=== PATIENT | female | born 1950 | race Caucasian/White ===

== ENCOUNTER 2016-11-04 23:41 | Emergency (ER) | payer OTHER ==
[~2016-11-04] VITALS: Ht 157.5 cm; Wt 128.1 kg
[~2016-11-04 23:41] MED LIST: AUGMENTIN875 MG PO
[2016-11-05 00:23] LABS: HEMATOCRIT 41.6 % (36.0-46.0); MCH 29.6 PG (29.0-34.0); MCV 92.4 FL (83-99); MEAN PLAT.VOLUME 9.6 uM^3 (9.5-12.4); PLATELET COUNT 246 K/uL (156-360); RBC DIS.WIDTH-CV 13.4 % (11.8-14.6); RBC DIS.WIDTH-SD 45.7 % (39-53)
[2016-11-05 00:35] LABS: CHLORIDE 105 mEq/L (99-109); SODIUM 138 mEq/L (136-147)
[2016-11-05 00:36] LABS: GLUCOSE 89 mg/dL (70-99)
[2016-11-05 00:38] LABS: ANION GAP 9 MEQ/L (2-14)
[2016-11-05 00:40] LABS: GFR ESTIMATE (CALCULATED) > 59 mL/min/
[2016-11-05 00:41] LABS: UREA NITROGEN (BUN) 22 mg/dL (9-23)
[2016-11-05 01:57] LABS: INFLUENZA A VIRAL ANTIGEN NEGATIVE; INFLUENZA B VIRAL ANTIGEN NEGATIVE
[2016-11-05] MEDS ORDERED: ZITHROMAX Z-PA250 MG PO (03:09)
[2016-11-05 03:32] VITALS: BP 104/51
== END 2016-11-05 03:32 | disposition home or self-care (01) ==
LOC: EXP 23:41 → EME 23:41 → EXP 11-05 03:32
PROVIDERS: Emergency Medicine
DX: J20.9 Acute bronchitis, unspecified (principal); Z87.891 Personal history of nicotine dependence
CPT/HCPCS: 71020; 80048; 85027; 87502; 99281; 99284

== ENCOUNTER 2018-02-20 19:18 | Inpatient (IN) | payer OTHER ==
[~2018-02-20] VITALS: Ht 154.9 cm; Wt 133.5 kg
[~2018-02-20 19:18] MED LIST changes: +ZITHROMAX Z-PA250 MG PO
[2018-02-20 20:01] LABS: HEMATOCRIT 42.5 % (36.0-46.0); HEMOGLOBIN 13.2 G/DL (11.9-15.5); MCH 29.9 PG (29.0-34.0); MCHC 31.1 G/DL (30.0-36.0); PLATELET COUNT 352 K/uL (156-360); RBC DIS.WIDTH-CV 14.5 % (11.8-14.6); RBC DIS.WIDTH-SD 51.6 % (39-53); RED BLOOD COUNT 4.41 M/uL (3.80-5.20); WHITE BLOOD COUNT 18.5 K/uL (4.1-10.2)
[2018-02-20 20:08] LABS: MCV 96.4 FL (83-99)
[2018-02-20 20:12] LABS: ALBUMIN 4.3 g/dL (3.2-4.8); CHLORIDE 102 mEq/L (99-109); SODIUM 141 mEq/L (136-147)
[2018-02-20 20:15] LABS: GLUCOSE 132 mg/dL (70-99)
[2018-02-20 20:17] LABS: TOTAL BILIRUBIN 0.3 mg/dL (0.0-1.0)
[2018-02-20 20:18] LABS: ALKALINE PHOSPHATASE 63 IU/L (3-129); CREATININE 10.9 mg/dL (0.6-1.3); GFR ESTIMATE (CALCULATED) 4 mL/min/
[2018-02-20 20:19] LABS: UREA NITROGEN (BUN) 79 mg/dL (9-23)
[2018-02-20 20:20] LABS: AST (GOT) 23 IU/L (2-34)
[2018-02-20 20:21] LABS: ALT (GPT) 22 IU/L (3-49)
[2018-02-20 20:50] LABS: POTASSIUM 6.3 mEq/L (3.7-5.4)
[2018-02-20 21:16] LABS: LIPASE 25 U/L (1.0-51.0)
[2018-02-20 21:26] LABS: COMMENTS - BLOOD GASES C+; FI02 21 %; MODE RA; SITE LR
[2018-02-20 21:27] LABS: CARBOXY HGB 1.3 % (0-5); METHEMOGLOBIN 0.7 % (0-1.5); O2 SATURATION (CALCULATED) 96 % (95-99); PCO2 20 mm Hg (35-45); PO2 103 mm Hg (80-100); pH < 6.91 (7.35-7.45)
[2018-02-20] MEDS ORDERED: KEFLEX500 MG PO (21:30)
[2018-02-20 22:26] LABS: SERUM ETHYL ALCOHOL < 10 mg/dL
[2018-02-20 22:29] LABS: SALICYLATE < 5.0 MG/DL (15-30)
[2018-02-20 22:56] LABS: APPEARANCE SL.HAZY ((CLEAR)); BILIRUBIN NEGATIVE; BLOOD MODERATE; COLOR YELLOW ((YELLOW)); GLUCOSE (STRIP) 50; KETONES 5; LEUKOCYTES NEGATIVE; NITRITE NEGATIVE; PROTEIN (STRIP) 100; SPECIFIC GRAVITY 1.011 (1.000-1.030); UROBILINOGEN 0.2 MG/DL (0.2-1.0)
[2018-02-20 23:05] LABS: BACTERIA RARE /HPF; EPITHELIAL CELLS RARE /HPF; HYALINE CASTS 0-5 /LPF; MUCUS TRACE /LPF; UCUL ADDED? YES; WHITE BLOOD CELLS 15-20 /HPF (0-5)
[2018-02-20 23:08] LABS: DEVICE VENT; FI02 50 %; MECHANICAL RATE 24 resp/min; MODE AC
[2018-02-20 23:09] LABS: PEEP 5 CM/H20; TIDAL VOLUME 380 ML
[2018-02-20 23:20] LABS: CARBOXY HGB 1.1 % (0-5); METHEMOGLOBIN 0.6 % (0-1.5); PCO2 34 mm Hg (35-45); PO2 117 mm Hg (80-100); pH < 6.94 (7.35-7.45)
[2018-02-20 23:21] LABS: SITE LR
[2018-02-20 23:50] VITALS: BP 106/55; BP 109/67
[2018-02-21] VITALS (12 sets, daily range): BP systolic 74–143; BP diastolic 38–72
[2018-02-21 00:38] LABS: INTER. NORMALIZED RATIO 1.3
[2018-02-21 00:59] LABS: CREATINE KINASE 142 IU/L (1-294); TRIGLYCERIDES 122 MG/DL (Normal: <150)
[2018-02-21 03:40] LABS: DEVICE VENT; FI02 50 %; MECHANICAL RATE 24 resp/min; MODE ACVC; PEEP 5 CM/H20; SITE RR ALINE; TIDAL VOLUME 380 ML; TOTAL RESP RATE 24 resp/min
[2018-02-21 03:41] LABS: BASE EXCESS -20.1 mEq/L (-3 to +3); BICARBONATE 11.1 mEq/L (22-26); CARBOXY HGB 1.4 % (0-5); METHEMOGLOBIN 0.7 % (0-1.5); O2 SATURATION (CALCULATED) 97.4 % (95-99); PCO2 46 mm Hg (35-45); PO2 103 mm Hg (80-100)
[2018-02-21 03:42] LABS: pH 6.99 (7.35-7.45)
[2018-02-21 06:12] LABS: COMMENTS - BLOOD GASES C+; DEVICE 840 VENT; FI02 50 %; MECHANICAL RATE 24 resp/min; MODE AC; PCO2 29 mm Hg (35-45); PEEP 5 CM/H20; SITE ALINE; TIDAL VOLUME 380 ML; TOTAL RESP RATE 31 resp/min; pH 7.31 (7.35-7.45)
[2018-02-21 06:13] LABS: BASE EXCESS -10.5 mEq/L (-3 to +3); BICARBONATE 14.6 mEq/L (22-26); CARBOXY HGB 0.8 % (0-5); PO2 152 mm Hg (80-100)
[2018-02-21 06:20] LABS: BASOPHIL (%) 0.4 % (0-1); BASOPHIL COUNT 0.1 K/uL (0-0.1); EOSINOPHIL (%) 0 % (0-5); HEMOGLOBIN 11.5 G/DL (11.9-15.5); IMMATURE GRANULOCYTE (%) 3.7 % (0.0-0.7); LYMPHOCYTE (%) 5.7 % (15-42); LYMPHOCYTE COUNT 1.1 K/uL (1.0-2.8); MCH 29.8 PG (29.0-34.0); MCHC 31.9 G/DL (30.0-36.0); MCV 93.3 FL (83-99); MONOCYTE (%) 7.6 % (3-12); MONOCYTE COUNT 1.5 K/uL (0-0.8); NEUTROPHIL (%) 82.6 % (45-76); NEUTROPHIL COUNT 16.5 K/uL (1.8-6.4); PLATELET COUNT 312 K/uL (156-360); RBC DIS.WIDTH-CV 14.4 % (11.8-14.6); RBC DIS.WIDTH-SD 49.1 % (39-53); RED BLOOD COUNT 3.86 M/uL (3.80-5.20); WHITE BLOOD COUNT 19.9 K/uL (4.1-10.2)
[2018-02-21 06:34] LABS: CHLORIDE 91 MEQ/L (99-109); CREATINE KINASE 138 IU/L (1-294); GLUCOSE 153 mg/dL (70-99); MAGNESIUM 2.1 mg/dl (1.3-2.7); PHOSPHORUS 4.7 mg/dL (2.5-4.9); SODIUM 143 MEQ/L (136-147)
[2018-02-21 06:44] LABS: CREATININE 5.5 MG/DL (0.6-1.3); GFR ESTIMATE (CALCULATED) 8 mL/min/; POTASSIUM 4.6 MEQ/L (3.7-5.4); UREA NITROGEN (BUN) 37 mg/dL (9-23)
[2018-02-21 15:27] LABS: CHLORIDE 91 MEQ/L (99-109); GLUCOSE 122 mg/dL (70-99); POTASSIUM 5.5 MEQ/L (3.7-5.4); SODIUM 140 MEQ/L (136-147); UREA NITROGEN (BUN) 47 mg/dL (9-23)
[2018-02-21 15:28] LABS: CREATININE 6.6 MG/DL (0.6-1.3); GFR ESTIMATE (CALCULATED) 7 mL/min/
[2018-02-22 06:10] LABS: BASOPHIL (%) 0.1 % (0-1); EOSINOPHIL (%) 0 % (0-5); HEMATOCRIT 30.1 % (36.0-46.0); HEMOGLOBIN 9.8 G/DL (11.9-15.5); IMMATURE GRANULOCYTE (%) 0.5 % (0.0-0.7); LYMPHOCYTE (%) 18.4 % (15-42); LYMPHOCYTE COUNT 1.4 K/uL (1.0-2.8); MCH 29.6 PG (29.0-34.0); MCHC 32.6 G/DL (30.0-36.0); MCV 90.9 FL (83-99); MONOCYTE (%) 14.5 % (3-12); MONOCYTE COUNT 1.1 K/uL (0-0.8); NEUTROPHIL (%) 66.5 % (45-76); RBC DIS.WIDTH-CV 14.6 % (11.8-14.6); RBC DIS.WIDTH-SD 49.1 % (39-53); RED BLOOD COUNT 3.31 M/uL (3.80-5.20); WHITE BLOOD COUNT 7.5 K/uL (4.1-10.2)
[2018-02-22 06:24] LABS: ALBUMIN 3.5 G/DL (3.2-4.8); CHLORIDE 91 MEQ/L (99-109); CREATININE 7.5 MG/DL (0.6-1.3); GFR ESTIMATE (CALCULATED) 6 mL/min/; PHOSPHORUS 6.1 mg/dL (2.5-4.9); SODIUM 137 MEQ/L (136-147); UREA NITROGEN (BUN) 58 mg/dL (9-23)
[2018-02-22 06:25] LABS: GLUCOSE 78 mg/dL (70-99)
[2018-02-22 06:46] LABS: PLATELET COUNT UNABLE TO REPORT K/uL (156-360)
[2018-02-22 06:47] LABS: HEMATOLOGY COMMENT 1 SN
[2018-02-22 08:00] VITALS: BP 100/52
[2018-02-22 12:00] VITALS: BP 123/60
[2018-02-22] MEDS ORDERED: LYRICA75 MG PO (15:43)
[2018-02-22] MEDS ORDERED: METFORMIN HCL1000 MG PO (15:43)
[2018-02-22] MEDS ORDERED: ATORVASTATIN CA10 MG PO (15:43)
[2018-02-22 16:00] VITALS: BP 117/60
[2018-02-23 05:51] LABS: BASOPHIL (%) 0.2 % (0-1); EOSINOPHIL (%) 0.3 % (0-5); HEMATOCRIT 28.6 % (36.0-46.0); HEMOGLOBIN 9.4 G/DL (11.9-15.5); IMMATURE GRANULOCYTE (%) 0.5 % (0.0-0.7); LYMPHOCYTE (%) 18.4 % (15-42); LYMPHOCYTE COUNT 1.2 K/uL (1.0-2.8); MCH 29.2 PG (29.0-34.0); MCHC 32.9 G/DL (30.0-36.0); MCV 88.8 FL (83-99); MONOCYTE (%) 15.7 % (3-12); NEUTROPHIL (%) 64.9 % (45-76); NEUTROPHIL COUNT 4.2 K/uL (1.8-6.4); PLATELET COUNT 167 K/uL (156-360); RBC DIS.WIDTH-CV 14.6 % (11.8-14.6); RED BLOOD COUNT 3.22 M/uL (3.80-5.20); WHITE BLOOD COUNT 6.4 K/uL (4.1-10.2)
[2018-02-23 06:08] LABS: ALBUMIN 3.4 G/DL (3.2-4.8); ALKALINE PHOSPHATASE 35 IU/L (3-129); ALT (GPT) 18 IU/L (3-49); AST (GOT) 24 IU/L (2-34); CHLORIDE 96 MEQ/L (99-109); SODIUM 136 MEQ/L (136-147); TOTAL BILIRUBIN 0.4 MG/DL (0.0-1.0); TOTAL PROTEIN 5.6 G/DL (6.4-8.3); UREA NITROGEN (BUN) 34 mg/dL (9-23)
[2018-02-23 06:09] LABS: ALBUMIN 3.4 G/DL (3.2-4.8); CHLORIDE 96 MEQ/L (99-109); SODIUM 138 MEQ/L (136-147); UREA NITROGEN (BUN) 33 mg/dL (9-23)
[2018-02-23 06:15] LABS: CREATININE 5.1 MG/DL (0.6-1.3); GFR ESTIMATE (CALCULATED) 9 mL/min/; GLUCOSE 101 mg/dL (70-99); GLUCOSE 102 mg/dL (70-99); POTASSIUM 4.1 MEQ/L (3.7-5.4)
[2018-02-23 06:16] LABS: GFR ESTIMATE (CALCULATED) 9 mL/min/; POTASSIUM 4.2 MEQ/L (3.7-5.4)
[2018-02-23 08:00] VITALS: BP 96/54
[2018-02-23 09:00] VITALS: BP 105/40; BP 108/41
[2018-02-23 12:00] VITALS: BP 101/56
[2018-02-23 14:47] LABS: HEPATITIS B SURFACE ANTIBODY Nonreactive; HEPATITIS B SURFACE ANTIGEN Nonreactive
[2018-02-23 16:00] VITALS: BP 89/48
[2018-02-23 20:01] VITALS: BP 104/55
[2018-02-23 21:38] VITALS: BP 104/55
[2018-02-24 05:42] LABS: BASOPHIL (%) 0.1 % (0-1); EOSINOPHIL (%) 2.2 % (0-5); EOSINOPHIL COUNT 0.2 K/uL (0-0.3); HEMATOCRIT 29.4 % (36.0-46.0); HEMOGLOBIN 9.7 G/DL (11.9-15.5); IMMATURE GRANULOCYTE (%) 0.4 % (0.0-0.7); LYMPHOCYTE (%) 14.8 % (15-42); MCH 29.5 PG (29.0-34.0); MCV 89.4 FL (83-99); MONOCYTE (%) 13.5 % (3-12); MONOCYTE COUNT 0.9 K/uL (0-0.8); NEUTROPHIL COUNT 4.7 K/uL (1.8-6.4); PLATELET COUNT 141 K/uL (156-360); RBC DIS.WIDTH-CV 14.6 % (11.8-14.6); RBC DIS.WIDTH-SD 47.3 % (39-53); RED BLOOD COUNT 3.29 M/uL (3.80-5.20); WHITE BLOOD COUNT 6.9 K/uL (4.1-10.2)
[2018-02-24 06:13] LABS: ALBUMIN 3.2 G/DL (3.2-4.8); ALBUMIN 3.3 G/DL (3.2-4.8); ALKALINE PHOSPHATASE 49 IU/L (3-129); ALT (GPT) 18 IU/L (3-49); AST (GOT) 26 IU/L (2-34); CHLORIDE 98 MEQ/L (99-109); GLUCOSE 141 mg/dL (70-99); GLUCOSE 143 mg/dL (70-99); POTASSIUM 4.1 MEQ/L (3.7-5.4); POTASSIUM 4.2 MEQ/L (3.7-5.4); SODIUM 136 MEQ/L (136-147); SODIUM 137 MEQ/L (136-147); TOTAL PROTEIN 5.7 G/DL (6.4-8.3); UREA NITROGEN (BUN) 47 mg/dL (9-23)
[2018-02-24 06:14] LABS: CREATININE 6.2 MG/DL (0.6-1.3); GFR ESTIMATE (CALCULATED) 7 mL/min/; PHOSPHORUS 6.1 mg/dL (2.5-4.9); TOTAL BILIRUBIN 0.6 MG/DL (0.0-1.0)
[2018-02-24 08:01] VITALS: BP 120/74
[2018-02-24 15:24] VITALS: BP 108/64
[2018-02-24 16:01] VITALS: BP 118/64
[2018-02-24 20:01] VITALS: BP 128/72
[2018-02-25] VITALS (7 sets, daily range): BP systolic 117–148; BP diastolic 51–68
[2018-02-25 05:35] LABS: BASOPHIL (%) 0.1 % (0-1); EOSINOPHIL (%) 4.1 % (0-5); EOSINOPHIL COUNT 0.3 K/uL (0-0.3); HEMATOCRIT 29.2 % (36.0-46.0); HEMOGLOBIN 9.8 G/DL (11.9-15.5); IMMATURE GRANULOCYTE (%) 0.7 % (0.0-0.7); LYMPHOCYTE (%) 11.9 % (15-42); LYMPHOCYTE COUNT 0.8 K/uL (1.0-2.8); MCH 29.5 PG (29.0-34.0); MCHC 33.6 G/DL (30.0-36.0); MONOCYTE COUNT 0.6 K/uL (0-0.8); NEUTROPHIL (%) 74.2 % (45-76); PLATELET COUNT 143 K/uL (156-360); RBC DIS.WIDTH-CV 14.7 % (11.8-14.6); RBC DIS.WIDTH-SD 47.7 % (39-53); RED BLOOD COUNT 3.32 M/uL (3.80-5.20); WHITE BLOOD COUNT 6.8 K/uL (4.1-10.2)
[2018-02-25 06:04] LABS: CHLORIDE 99 MEQ/L (99-109); GFR ESTIMATE (CALCULATED) 6 mL/min/; MAGNESIUM 2.2 mg/dl (1.3-2.7); PHOSPHORUS 7.5 mg/dL (2.5-4.9); POTASSIUM 4.4 MEQ/L (3.7-5.4); SODIUM 139 MEQ/L (136-147); UREA NITROGEN (BUN) 58 mg/dL (9-23)
[2018-02-25 06:05] LABS: GLUCOSE 100 mg/dL (70-99)
[2018-02-26] VITALS (9 sets, daily range): BP systolic 119–196; BP diastolic 62–81
[2018-02-26 05:46] LABS: BASOPHIL (%) 0.3 % (0-1); EOSINOPHIL (%) 3.3 % (0-5); EOSINOPHIL COUNT 0.3 K/uL (0-0.3); HEMATOCRIT 29.8 % (36.0-46.0); IMMATURE GRANULOCYTE (%) 0.5 % (0.0-0.7); LYMPHOCYTE (%) 9.8 % (15-42); LYMPHOCYTE COUNT 0.8 K/uL (1.0-2.8); MCH 29.8 PG (29.0-34.0); MCHC 33.6 G/DL (30.0-36.0); MCV 88.7 FL (83-99); MONOCYTE (%) 11.6 % (3-12); MONOCYTE COUNT 0.9 K/uL (0-0.8); NEUTROPHIL (%) 74.5 % (45-76); NEUTROPHIL COUNT 5.7 K/uL (1.8-6.4); PLATELET COUNT 151 K/uL (156-360); RBC DIS.WIDTH-CV 14.6 % (11.8-14.6); RBC DIS.WIDTH-SD 46.7 % (39-53); RED BLOOD COUNT 3.36 M/uL (3.80-5.20); WHITE BLOOD COUNT 7.7 K/uL (4.1-10.2)
[2018-02-26 06:53] LABS: ALBUMIN 3.1 G/DL (3.2-4.8); ALKALINE PHOSPHATASE 53 IU/L (3-129); ALT (GPT) 21 IU/L (3-49); AST (GOT) 29 IU/L (2-34); CHLORIDE 99 MEQ/L (99-109); GFR ESTIMATE (CALCULATED) 8 mL/min/; GLUCOSE 86 mg/dL (70-99); POTASSIUM 4.4 MEQ/L (3.7-5.4); SODIUM 140 MEQ/L (136-147); TOTAL BILIRUBIN 0.6 MG/DL (0.0-1.0); TOTAL PROTEIN 5.5 G/DL (6.4-8.3); UREA NITROGEN (BUN) 38 mg/dL (9-23)
[2018-02-26 06:54] LABS: ALBUMIN 3.1 G/DL (3.2-4.8); CHLORIDE 100 MEQ/L (99-109); GFR ESTIMATE (CALCULATED) 8 mL/min/; GLUCOSE 87 mg/dL (70-99); MAGNESIUM 2.1 mg/dl (1.3-2.7); PHOSPHORUS 5.8 mg/dL (2.5-4.9); POTASSIUM 4.4 MEQ/L (3.7-5.4); SODIUM 140 MEQ/L (136-147); UREA NITROGEN (BUN) 37 mg/dL (9-23)
[2018-02-26 07:09] LABS: CREATININE 5.6 MG/DL (0.6-1.3)
[2018-02-26 07:12] LABS: CREATININE 5.6 MG/DL (0.6-1.3)
[2018-02-26 10:13] LABS: CARBOXY HGB 0.9 % (0-5); COMMENTS - BLOOD GASES NAC+; DEVICE 840; FI02 30 %; METHEMOGLOBIN 0.8 % (0-1.5); MODE PS; PCO2 25 mm Hg (35-45); PEEP 5 CM/H20; PO2 88 mm Hg (80-100); PRES. SUPPORT 10 CM/H2O; SITE ALINE; TOTAL RESP RATE 10 resp/min; pH 7.55 (7.35-7.45)
[2018-02-26 10:14] LABS: BASE EXCESS 0.6 mEq/L (-3 to +3); BICARBONATE 21.9 mEq/L (22-26)
[2018-02-26 15:09] LABS: C DIFF TOXIN NEGATIVE (NEGATIVE)
[2018-02-27] VITALS (8 sets, daily range): BP systolic 130–148; BP diastolic 58–86
[2018-02-27 05:50] LABS: BASOPHIL (%) 0.1 % (0-1); EOSINOPHIL (%) 3.4 % (0-5); EOSINOPHIL COUNT 0.3 K/uL (0-0.3); HEMATOCRIT 29.5 % (36.0-46.0); HEMOGLOBIN 9.6 G/DL (11.9-15.5); IMMATURE GRANULOCYTE (%) 0.5 % (0.0-0.7); LYMPHOCYTE (%) 6.8 % (15-42); LYMPHOCYTE COUNT 0.7 K/uL (1.0-2.8); MCH 29.6 PG (29.0-34.0); MCHC 32.5 G/DL (30.0-36.0); MONOCYTE (%) 11.7 % (3-12); MONOCYTE COUNT 1.1 K/uL (0-0.8); NEUTROPHIL (%) 77.5 % (45-76); NEUTROPHIL COUNT 7.4 K/uL (1.8-6.4); PLATELET COUNT 170 K/uL (156-360); RBC DIS.WIDTH-CV 14.8 % (11.8-14.6); RED BLOOD COUNT 3.24 M/uL (3.80-5.20); WHITE BLOOD COUNT 9.6 K/uL (4.1-10.2)
[2018-02-27 06:17] LABS: ALBUMIN 3.2 G/DL (3.2-4.8); CHLORIDE 100 MEQ/L (99-109); GFR ESTIMATE (CALCULATED) 6 mL/min/; GLUCOSE 69 mg/dL (70-99); PHOSPHORUS 6.9 mg/dL (2.5-4.9); POTASSIUM 4.6 MEQ/L (3.7-5.4); SODIUM 140 MEQ/L (136-147); UREA NITROGEN (BUN) 49 mg/dL (9-23)
[2018-02-27 06:20] LABS: CREATININE 6.8 MG/DL (0.6-1.3)
[2018-02-28] VITALS (23 sets, daily range): BP systolic 110–165; BP diastolic 60–91
[2018-02-28 05:40] LABS: BASOPHIL (%) 0.2 % (0-1); EOSINOPHIL (%) 1.7 % (0-5); EOSINOPHIL COUNT 0.2 K/uL (0-0.3); HEMATOCRIT 30.4 % (36.0-46.0); HEMOGLOBIN 9.5 G/DL (11.9-15.5); IMMATURE GRANULOCYTE (%) 0.8 % (0.0-0.7); LYMPHOCYTE (%) 8.4 % (15-42); LYMPHOCYTE COUNT 0.9 K/uL (1.0-2.8); MCH 29.2 PG (29.0-34.0); MCHC 31.3 G/DL (30.0-36.0); MCV 93.5 FL (83-99); MONOCYTE COUNT 1.2 K/uL (0-0.8); NEUTROPHIL (%) 76.9 % (45-76); NEUTROPHIL COUNT 7.8 K/uL (1.8-6.4); PLATELET COUNT 186 K/uL (156-360); RBC DIS.WIDTH-CV 14.6 % (11.8-14.6); RBC DIS.WIDTH-SD 50.3 % (39-53); RED BLOOD COUNT 3.25 M/uL (3.80-5.20); WHITE BLOOD COUNT 10.1 K/uL (4.1-10.2)
[2018-02-28 06:52] LABS: CHLORIDE 99 MEQ/L (99-109); GFR ESTIMATE (CALCULATED) 10 mL/min/; GLUCOSE 75 mg/dL (70-99); MAGNESIUM 2.1 mg/dl (1.3-2.7); PHOSPHORUS 5.7 mg/dL (2.5-4.9); POTASSIUM 4.3 MEQ/L (3.7-5.4); SODIUM 141 MEQ/L (136-147); UREA NITROGEN (BUN) 28 mg/dL (9-23)
[2018-02-28 06:54] LABS: ALBUMIN 3.5 G/DL (3.2-4.8); ALKALINE PHOSPHATASE 75 IU/L (3-129); CHLORIDE 101 MEQ/L (99-109); GLUCOSE 76 mg/dL (70-99); POTASSIUM 4.4 MEQ/L (3.7-5.4); SODIUM 142 MEQ/L (136-147); TOTAL BILIRUBIN 0.7 MG/DL (0.0-1.0); TOTAL PROTEIN 6.2 G/DL (6.4-8.3); UREA NITROGEN (BUN) 29 mg/dL (9-23)
[2018-02-28 06:56] LABS: CREATININE 4.6 MG/DL (0.6-1.3)
[2018-02-28 06:57] LABS: ALT (GPT) 69 IU/L (3-49); AST (GOT) 129 IU/L (2-34); CREATININE 4.7 MG/DL (0.6-1.3); GFR ESTIMATE (CALCULATED) 10 mL/min/
[2018-02-28 09:46] LABS: BASE EXCESS -2.1 mEq/L (-3 to +3); BICARBONATE 23.7 mEq/L (22-26); CARBOXY HGB 1.3 % (0-5); COMMENTS - BLOOD GASES A+C+; DEVICE 840; FI02 30 %; MODE TC; O2 SATURATION (CALCULATED) 94.4 % (95-99); PCO2 44 mm Hg (35-45); PEEP 5 CM/H20; PO2 62 mm Hg (80-100); SITE RR; TOTAL RESP RATE 15 resp/min; pH 7.34 (7.35-7.45)
[2018-03-01] VITALS (24 sets, daily range): BP systolic 123–156; BP diastolic 61–88
[2018-03-01 05:53] LABS: BASOPHIL (%) 0.2 % (0-1); EOSINOPHIL (%) 4.1 % (0-5); EOSINOPHIL COUNT 0.4 K/uL (0-0.3); HEMATOCRIT 28.9 % (36.0-46.0); HEMOGLOBIN 9.2 G/DL (11.9-15.5); IMMATURE GRANULOCYTE (%) 0.6 % (0.0-0.7); LYMPHOCYTE (%) 7.6 % (15-42); LYMPHOCYTE COUNT 0.6 K/uL (1.0-2.8); MCH 29.4 PG (29.0-34.0); MCHC 31.8 G/DL (30.0-36.0); MCV 92.3 FL (83-99); MONOCYTE (%) 17.2 % (3-12); MONOCYTE COUNT 1.5 K/uL (0-0.8); NEUTROPHIL (%) 70.3 % (45-76); PLATELET COUNT 167 K/uL (156-360); RBC DIS.WIDTH-CV 14.7 % (11.8-14.6); RBC DIS.WIDTH-SD 49.4 % (39-53); RED BLOOD COUNT 3.13 M/uL (3.80-5.20); WHITE BLOOD COUNT 8.5 K/uL (4.1-10.2)
[2018-03-01 06:14] LABS: ALBUMIN 3.2 G/DL (3.2-4.8); ALKALINE PHOSPHATASE 76 IU/L (3-129); ALT (GPT) 97 IU/L (3-49); AST (GOT) 161 IU/L (2-34); CHLORIDE 101 MEQ/L (99-109); CREATININE 5.3 MG/DL (0.6-1.3); GFR ESTIMATE (CALCULATED) 9 mL/min/; GLUCOSE 89 mg/dL (70-99); LIPASE 98 U/L (1.0-51.0); PHOSPHORUS 6.3 mg/dL (2.5-4.9); SODIUM 141 MEQ/L (136-147); TOTAL BILIRUBIN 0.6 MG/DL (0.0-1.0); TOTAL PROTEIN 5.6 G/DL (6.4-8.3); UREA NITROGEN (BUN) 38 mg/dL (9-23)
[2018-03-01 11:55] LABS: HEMOGLOBIN 8.8 G/DL (11.9-15.5); MCV 91.8 FL (83-99)
[2018-03-01 23:19] LABS: HEMATOCRIT 26.2 % (36.0-46.0); HEMOGLOBIN 8.8 G/DL (11.9-15.5); MCV 89.4 FL (83-99)
[2018-03-02] VITALS (18 sets, daily range): BP systolic 106–155; BP diastolic 45–88
[2018-03-02 05:41] LABS: BASOPHIL (%) 0.3 % (0-1); EOSINOPHIL (%) 7.8 % (0-5); EOSINOPHIL COUNT 0.5 K/uL (0-0.3); HEMATOCRIT 26.3 % (36.0-46.0); HEMOGLOBIN 8.5 G/DL (11.9-15.5); IMMATURE GRANULOCYTE (%) 0.9 % (0.0-0.7); LYMPHOCYTE (%) 11.2 % (15-42); LYMPHOCYTE COUNT 0.8 K/uL (1.0-2.8); MCH 29.2 PG (29.0-34.0); MCHC 32.3 G/DL (30.0-36.0); MCV 90.4 FL (83-99); MONOCYTE (%) 19.9 % (3-12); MONOCYTE COUNT 1.4 K/uL (0-0.8); NEUTROPHIL (%) 59.9 % (45-76); NEUTROPHIL COUNT 4.1 K/uL (1.8-6.4); PLATELET COUNT 172 K/uL (156-360); RBC DIS.WIDTH-CV 14.3 % (11.8-14.6); RED BLOOD COUNT 2.91 M/uL (3.80-5.20); WHITE BLOOD COUNT 6.9 K/uL (4.1-10.2)
[2018-03-02 06:06] LABS: CHLORIDE 101 MEQ/L (99-109); GFR ESTIMATE (CALCULATED) 14 mL/min/; GLUCOSE 85 mg/dL (70-99); POTASSIUM 3.5 MEQ/L (3.7-5.4); SODIUM 141 MEQ/L (136-147); UREA NITROGEN (BUN) 21 mg/dL (9-23)
[2018-03-02 06:07] LABS: CREATININE 3.5 MG/DL (0.6-1.3)
[2018-03-03] VITALS (7 sets, daily range): BP systolic 131–160; BP diastolic 60–82
[2018-03-03 06:22] LABS: HEMATOCRIT 26.4 % (36.0-46.0); HEMOGLOBIN 8.6 G/DL (11.9-15.5); MCH 29.7 PG (29.0-34.0); MCHC 32.6 G/DL (30.0-36.0); PLATELET COUNT 193 K/uL (156-360); RBC DIS.WIDTH-CV 13.9 % (11.8-14.6); RBC DIS.WIDTH-SD 46.3 % (39-53); WHITE BLOOD COUNT 7.7 K/uL (4.1-10.2)
[2018-03-03 06:52] LABS: ALKALINE PHOSPHATASE 68 IU/L (3-129); ALT (GPT) 61 IU/L (3-49); CHLORIDE 101 MEQ/L (99-109); CREATININE 3.8 MG/DL (0.6-1.3); GFR ESTIMATE (CALCULATED) 13 mL/min/; GLUCOSE 93 mg/dL (70-99); POTASSIUM 3.5 MEQ/L (3.7-5.4); SODIUM 140 MEQ/L (136-147); TOTAL BILIRUBIN 0.6 MG/DL (0.0-1.0); TOTAL PROTEIN 5.5 G/DL (6.4-8.3); UREA NITROGEN (BUN) 26 mg/dL (9-23)
[2018-03-03 06:57] LABS: AST (GOT) 57 IU/L (2-34)
[2018-03-04 04:20] VITALS: BP 145/73
[2018-03-04 07:38] VITALS: BP 136/61
[2018-03-04 08:07] LABS: ALBUMIN 3.2 G/DL (3.2-4.8); CHLORIDE 104 MEQ/L (99-109); CREATININE 3.8 MG/DL (0.6-1.3); GFR ESTIMATE (CALCULATED) 13 mL/min/; GLUCOSE 98 mg/dL (70-99); POTASSIUM 3.6 MEQ/L (3.7-5.4); SODIUM 142 MEQ/L (136-147); UREA NITROGEN (BUN) 27 mg/dL (9-23)
[2018-03-04 08:08] LABS: PHOSPHORUS 3.1 mg/dL (2.5-4.9)
[2018-03-04 11:31] VITALS: BP 178/80
[2018-03-04 15:35] VITALS: BP 147/70
[2018-03-04 20:52] VITALS: BP 152/74
[2018-03-05] VITALS (7 sets, daily range): BP systolic 133–163; BP diastolic 60–87
[2018-03-05 05:14] LABS: BASOPHIL (%) 0.4 % (0-1); EOSINOPHIL (%) 6.1 % (0-5); EOSINOPHIL COUNT 0.4 K/uL (0-0.3); HEMATOCRIT 26.2 % (36.0-46.0); HEMOGLOBIN 8.7 G/DL (11.9-15.5); LYMPHOCYTE (%) 17.3 % (15-42); LYMPHOCYTE COUNT 1.2 K/uL (1.0-2.8); MCH 29.8 PG (29.0-34.0); MCHC 33.2 G/DL (30.0-36.0); MCV 89.7 FL (83-99); MONOCYTE (%) 15.1 % (3-12); NEUTROPHIL (%) 60.1 % (45-76); PLATELET COUNT 225 K/uL (156-360); RBC DIS.WIDTH-SD 45.2 % (39-53); RED BLOOD COUNT 2.92 M/uL (3.80-5.20); WHITE BLOOD COUNT 6.7 K/uL (4.1-10.2)
[2018-03-05 05:53] LABS: CHLORIDE 104 MEQ/L (99-109); CREATININE 3.3 MG/DL (0.6-1.3); GFR ESTIMATE (CALCULATED) 15 mL/min/; GLUCOSE 99 mg/dL (70-99); POTASSIUM 3.3 MEQ/L (3.7-5.4); SODIUM 143 MEQ/L (136-147); UREA NITROGEN (BUN) 25 mg/dL (9-23)
[2018-03-06 04:29] VITALS: BP 136/72
[2018-03-06 06:25] LABS: BASOPHIL (%) 0.3 % (0-1); EOSINOPHIL (%) 6.3 % (0-5); EOSINOPHIL COUNT 0.4 K/uL (0-0.3); HEMATOCRIT 26.4 % (36.0-46.0); HEMOGLOBIN 8.8 G/DL (11.9-15.5); IMMATURE GRANULOCYTE (%) 1.2 % (0.0-0.7); LYMPHOCYTE (%) 20.6 % (15-42); LYMPHOCYTE COUNT 1.4 K/uL (1.0-2.8); MCH 30.6 PG (29.0-34.0); MCHC 33.3 G/DL (30.0-36.0); MCV 91.7 FL (83-99); MONOCYTE (%) 10.9 % (3-12); MONOCYTE COUNT 0.7 K/uL (0-0.8); NEUTROPHIL (%) 60.7 % (45-76); NEUTROPHIL COUNT 4.1 K/uL (1.8-6.4); PLATELET COUNT 258 K/uL (156-360); RBC DIS.WIDTH-CV 14.6 % (11.8-14.6); RBC DIS.WIDTH-SD 48.8 % (39-53); RED BLOOD COUNT 2.88 M/uL (3.80-5.20); WHITE BLOOD COUNT 6.7 K/uL (4.1-10.2)
[2018-03-06 06:46] LABS: CHLORIDE 107 MEQ/L (99-109); GFR ESTIMATE (CALCULATED) 17 mL/min/; GLUCOSE 96 mg/dL (70-99); POTASSIUM 3.7 MEQ/L (3.7-5.4); SODIUM 144 MEQ/L (136-147); UREA NITROGEN (BUN) 24 mg/dL (9-23)
[2018-03-06 06:47] LABS: MAGNESIUM 1.6 mg/dl (1.3-2.7)
[2018-03-06 07:12] VITALS: BP 142/63
[2018-03-06 16:00] VITALS: BP 141/77
[2018-03-06 19:14] VITALS: BP 149/67
[2018-03-06 23:54] VITALS: BP 146/63
[2018-03-07 06:36] LABS: BASOPHIL (%) 0.5 % (0-1); EOSINOPHIL COUNT 0.4 K/uL (0-0.3); HEMATOCRIT 26.3 % (36.0-46.0); HEMOGLOBIN 8.7 G/DL (11.9-15.5); LYMPHOCYTE (%) 21.3 % (15-42); LYMPHOCYTE COUNT 1.3 K/uL (1.0-2.8); MCH 30.1 PG (29.0-34.0); MCHC 33.1 G/DL (30.0-36.0); MONOCYTE (%) 10.4 % (3-12); MONOCYTE COUNT 0.6 K/uL (0-0.8); NEUTROPHIL (%) 59.8 % (45-76); NEUTROPHIL COUNT 3.7 K/uL (1.8-6.4); PLATELET COUNT 278 K/uL (156-360); RBC DIS.WIDTH-CV 14.8 % (11.8-14.6); RBC DIS.WIDTH-SD 48.3 % (39-53); RED BLOOD COUNT 2.89 M/uL (3.80-5.20); WHITE BLOOD COUNT 6.2 K/uL (4.1-10.2)
[2018-03-07 06:55] LABS: CHLORIDE 107 MEQ/L (99-109); CREATININE 2.8 MG/DL (0.6-1.3); GFR ESTIMATE (CALCULATED) 18 mL/min/; GLUCOSE 96 mg/dL (70-99); POTASSIUM 3.6 MEQ/L (3.7-5.4); SODIUM 144 MEQ/L (136-147); UREA NITROGEN (BUN) 21 mg/dL (9-23)
[2018-03-07 07:43] VITALS: BP 128/61
[2018-03-07] MEDS ORDERED: LABETALOL HCL100 MG PO (11:38)
== END 2018-03-07 14:33 | disposition home or self-care (01) | DRG 987 ==
LOC: EME 19:18 → EDOF 22:11 → 4WEST 22:11 → ENRESERV 22:12 → 4WEST 23:45 → CANRESERV 03-02 13:43 → ENRESERV 03-02 13:43 → 2EAST 03-02 18:14
PROVIDERS: Emergency Medicine; Hospitalist; Internal Medicine; Internal Medicine Nephrology; Nurse Practitioner Family; Physician Assistant; Specialist; Surgery
PROC: 0BH17EZ Insertion of Endotracheal Airway into Trachea, Via Natural or Artificial Opening (ICD-10-PCS; principal; 2018-02-20)
PROC: 5A1955Z Respiratory Ventilation, Greater than 96 Consecutive Hours (ICD-10-PCS; principal; 2018-02-20)
PROC: 5A1D70Z Performance of Urinary Filtration, Intermittent, Less than 6 Hours Per Day (ICD-10-PCS; 2018-02-21)
PROC: 02HV33Z Insertion of Infusion Device into Superior Vena Cava, Percutaneous Approach (ICD-10-PCS; 2018-02-22)
PROC: 03HY32Z Insertion of Monitoring Device into Upper Artery, Percutaneous Approach (ICD-10-PCS; 2018-02-22)
PROC: B548ZZA Ultrasonography of Superior Vena Cava, Guidance (ICD-10-PCS; 2018-02-22)
PROC: 0FT44ZZ Resection of Gallbladder, Percutaneous Endoscopic Approach (ICD-10-PCS; 2018-03-01)
PROC: BF141ZZ Fluoroscopy of Gallbladder, Bile Ducts and Pancreatic Ducts using Low Osmolar Contrast (ICD-10-PCS; 2018-03-01)
DX: J96.00 Acute respiratory failure, unspecified whether with hypoxia or hypercapnia (principal); R65.20 Severe sepsis without septic shock; J18.9 Pneumonia, unspecified organism; E87.2 Acidosis; J90 Pleural effusion, not elsewhere classified; R18.8 Other ascites; N17.9 Acute kidney failure, unspecified; Z68.43 Body mass index [BMI] 50.0-59.9, adult; K80.00 Calculus of gallbladder with acute cholecystitis without obstruction; J81.1 Chronic pulmonary edema; E78.5 Hyperlipidemia, unspecified; N18.9 Chronic kidney disease, unspecified; E11.22 Type 2 diabetes mellitus with diabetic chronic kidney disease; E66.01 Morbid (severe) obesity due to excess calories; R60.0 Localized edema; F32.9 Major depressive disorder, single episode, unspecified; M19.90 Unspecified osteoarthritis, unspecified site; G62.9 Polyneuropathy, unspecified; I89.0 Lymphedema, not elsewhere classified; R11.10 Vomiting, unspecified; R19.7 Diarrhea, unspecified; J40 Bronchitis, not specified as acute or chronic; N17.0 Acute kidney failure with tubular necrosis; I95.9 Hypotension, unspecified; A41.9 Sepsis, unspecified organism; R06.82 Tachypnea, not elsewhere classified; K76.0 Fatty (change of) liver, not elsewhere classified; G47.30 Sleep apnea, unspecified; I51.7 Cardiomegaly; I44.7 Left bundle-branch block, unspecified; N95.0 Postmenopausal bleeding; E87.6 Hypokalemia; I87.8 Other specified disorders of veins; Z94.4 Liver transplant status; Z99.2 Dependence on renal dialysis; Z88.8 Allergy status to other drugs, medicaments and biological substances; Z87.891 Personal history of nicotine dependence
CPT/HCPCS: 36600; 71045; 71275; 74176; 74177; 74300; 76705; 76770; 76856; 80048; 80048 91; 80053; 80069; 80202; 81003; 82330; 82550; 82570; 82803; 82948; 83605; 83690; 83735; 84100; 84156; 84478; 85014; 85018; 85025; 85027; 85610; 85730; 86706; 87040; 87070; 87086; 87205; 87340; 87493; 87641; 88304; 93005; 94002; 94003; 94640; 94760; 94799; 97530 GO; 97530 GP; 99281; 99285; C1788; G0480; J1170; J1644; J2405; J2543; J2704; J3010; J3370; J3480; J7030; J7050; J7070; P9047; S0020; S0028; S0074